=== PATIENT | female | born 1930 | race African-American/Black ===

== ENCOUNTER 2018-07-12 20:34 | Emergency (ER) | payer MEDICARE, MEDICAID ==
[~2018-07-12] VITALS: Ht 167.6 cm; Wt 90.7 kg
[~2018-07-12 20:34] MED LIST: ATORVASTATIN CA10 MG ORAL; COREG3.125 MG ORAL; FUROSEMIDE20 M1 ORAL; SPIRONOLACTONE100 MG ORAL; ZESTORETIC 20/251 EA ORAL
--- NOTE | 2018-07-12 20:40 | NUR ---
ED Nurse Note: Patient BIBA RA 26 from home c/o shortness of breath becoming progressively worse over the past 2 days. Patient SpO2 at 100% on 15lpm via non rebreather. 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 AO4 NAD
--- NOTE | 2018-07-12 20:45 | NUR ---
ED Nurse Note: IV access established. Blood collected; sent down to lab. unable to get enough blood for blood cultures. attempted to get blood x3 with ore charger. called lab to draw.
--- NOTE | 2018-07-12 20:54 | Emergency Room Report ---
History of Present Illness General Chief Complaint: Dyspnea/Respdistress Source: Patient (Heidi Wilson DO) Present Illness HPI Patient presents with reports and complaints of shortness of breath Patient is somewhat of a poor historian Reports that over the past several days has been feeling more short of breath Paramedics were summoned Patient denies any vomiting or diarrhea Denies any recent travel Denies any URI symptoms she feels that laying flat and any minimal exertion is worsening her symptoms Patient reports that she was not given any medication is not taking any at this time (Heidi Wilson DO) Allergies: Coded Allergies: NO KNOWN ALLERGIES (Verified Allergy, Unknown, 07/12/18) Patient History Past Medical History: see triage record Pertinent Family History: none Last Menstrual Period: SAMMIE Now: No Reviewed Nursing Documentation: PMH: Agreed; PSxH: Agreed (Heidi Wilson DO) Nursing Documentation-PMH Past Medical History: No History, Except For Hx Cardiac Problems: Yes - CHF Hx Hypertension: Yes Hx Cancer: No Hx Gastrointestinal Problems: No Hx Neurological Problems: No (Heidi Wilson DO) Review of Systems All Other Systems: negative except mentioned in HPI (Heidi Wlison DO) Physical Exam Vital Signs Date Time Temp Pulse Resp B/P (MAP) Pulse Ox O2 Delivery O2 Flow Rate FiO2 07/12/18 20:32 97.5 112 24 169/103 100 Non-Rebreather 15.0 Sp02 EP Interpretation: reviewed, normal General Appearance: mild distress - Appears mildly short of breath Head: normocephalic, atraumatic Eyes: bilateral eye PERRL ENT: normal pharynx Neck: full range of motion, supple Respiratory: crackles - Bilaterally and mildly tachypneic Cardiovascular #1: regular rate, rhythm Gastrointestinal: non tender, soft, no mass Genitourinary: no CVA tenderness Musculoskeletal: normal inspection Neurologic: alert, responsive, 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 Wilson.See Dr. Wilson's note for full HPI. Patient was noted to have some significant difficulty breathing and congestive heart failure.Laboratory testing was notable for markedly elevated BNP. Patient was given IV Lasix. Patient was discussed with Dr.El Box for transfer to [facility]. Patient will be transferred via ALS ambulance. Patient is currently in stable condition. Labs Test 07/12/18 20:38 07/12/18 20:45 07/12/18 21:50 Arterial Blood pH 7.390 (7.350-7.450) Arterial Blood Partial Pressure CO2 43.1 mmHg (35.0-45.0) Arterial Blood Partial Pressure O2 262.9 mmHg (75.0-100.0) Arterial Blood HCO3 25.5 mmol/L (22.0-26.0) Arterial Blood Oxygen Saturation 99.5 % (95-100) Arterial Blood Base Excess 0.4 (-2-2) Valente Test Positive White Blood Count 4.3 K/UL (4.8-10.8) Red Blood Count 3.11 M/UL (4.20-5.40) Hemoglobin 10.0 G/DL (12.0-16.0) Hematocrit 29.8 % (37.0-47.0) Mean Corpuscular Volume 96 FL (80-99) Mean Corpuscular Hemoglobin 32.2 PG (27.0-31.0) Mean Corpuscular Hemoglobin Concent 33.6 G/DL (32.0-36.0) Red Cell Distribution Width 15.8 % (11.6-14.8) Platelet Count 229 K/UL (150-450) Mean Platelet Volume 6.3 FL (6.5-10.1) Neutrophils (%) (Auto) 54.1 % (45.0-75.0) Lymphocytes (%) (Auto) 28.8 % (20.0-45.0) Monocytes (%) (Auto) 10.6 % (1.0-10.0) Eosinophils (%) (Auto) 3.6 % (0.0-3.0) Basophils (%) (Auto) 2.9 % (0.0-2.0) Prothrombin Time 10.8 SEC (9.30-11.50) Prothromb Time International Ratio 1.0 (0.9-1.1) Activated Partial Thromboplast Time 24 SEC (23-33) Sodium Level 143 MMOL/L (136-145) Potassium Level 4.4 MMOL/L (3.5-5.1) Chloride Level 108 MMOL/L (98-107) Carbon Dioxide Level 29 MMOL/L (21-32) Anion Gap 6 mmol/L (5-15) Blood Urea Nitrogen 15 mg/dL (7-18) Creatinine 1.1 MG/DL (0.55-1.30) Estimat Glomerular Filtration Rate mL/min (>60) Glucose Level 101 MG/DL (74-106) Calcium Level 9.4 MG/DL (8.5-10.1) Total Bilirubin 0.4 MG/DL (0.2-1.0) Aspartate Amino Transf (AST/SGOT) 27 U/L (15-37) Alanine Aminotransferase (ALT/SGPT) 42 U/L (12-78) Alkaline Phosphatase 121 U/L (46-116) Total Creatine Kinase 125 U/L (26-308) Creatine Kinase MB 1.7 NG/ML (0.0-3.6) Creatine Kinase MB Relative Index 1.3 Troponin I 0.034 ng/mL (0.000-0.056) Pro-B-Type Natriuretic Peptide 75364 pg/mL (0-125) Total Protein 7.4 G/DL (6.4-8.2) Albumin 3.1 G/DL (3.4-5.0) Globulin 4.3 g/dL Albumin/Globulin Ratio 0.7 (1.0-2.7) (Demarcus Garcia MD) EKG Diagnostic Results Rate: tachycardiac Rhythm: other ST Segments: other - Left bundle-branch block, nonspecific changes (Heidi Wilson DO) Rhythm Strip Diag. Results EP Interpretation: yes Rate: 77 Rhythm: NSR, no PVC's, no ectopy, other - Prolonged QRS (Heidi Wilson DO) Chest X-Ray Diagnostic Results Chest X-Ray Diagnostic Results : Chest X-Ray Ordered: Yes # of Views/Limited/Complete: 1 View Indication: Shortness of Breath EP Interpretation: Yes Interpretation: no consolidation, no effusion, no pneumothorax, other - Pulmonary congestion Impression: Other - Pulmonary congestion Electronically Signed by: Heidi Wilson DO (Heidi Wilson DO) Last Vital Signs Date Time Temp Pulse Resp B/P (MAP) Pulse Ox O2 Delivery O2 Flow Rate FiO2 07/12/18 20:32 97.5 112 24 169/103 100 Non-Rebreather 15.0 (Heidi Wilson DO) Status: improved (Demarcus Garcia MD) Disposition: XFER T-[facility] Condition: Stable Heidi Wilson DO Jul 12, 2018 20:54 Demarcus Garcia MD Jul 12, 2018 22:21
[2018-07-12 21:32] LABS: BASOPHILS % (AUTO) 2.9 % (0.0-2.0); EOSINOPHILS % (AUTO) 3.6 % (0.0-3.0); HEMATOCRIT 29.8 % (37.0-47.0); LYMPHOCYTES % (AUTO) 28.8 % (20.0-45.0); MEAN CORPUSCULAR VOLUME 96 FL (80-99); MONOCYTES % (AUTO) 10.6 % (1.0-10.0); NEUTROPHILS % (AUTO) 54.1 % (45.0-75.0); PLATELET COUNT 229 K/UL (150-450); RED BLOOD COUNT 3.11 M/UL (4.20-5.40); RED CELL DISTRIBUTION WIDTH 15.8 % (11.6-14.8); WHITE BLOOD COUNT 4.3 K/UL (4.8-10.8)
[2018-07-12 21:44] LABS: ANION GAP 6 mmol/L (5-15); BLOOD UREA NITROGEN 15 mg/dL (7-18); CALCIUM 9.4 MG/DL (8.5-10.1); CARBON DIOXIDE 29 MMOL/L (21-32); CHLORIDE 108 MMOL/L (98-107); CREATININE 1.1 MG/DL (0.55-1.30); POTASSIUM 4.4 MMOL/L (3.5-5.1); SODIUM 143 MMOL/L (136-145)
--- NOTE | 2018-07-12 21:45 | NUR ---
ED Nurse Note: Urine collected; sent down to lab. Called lab to draw blood culture.
[2018-07-12 21:59] LABS: ALANINE AMINOTRANSFERASE 42 U/L (12-78); ALBUMIN 3.1 G/DL (3.4-5.0); ALBUMIN/GLOBULIN RATIO 0.7 (1.0-2.7); ALKALINE PHOSPHATASE 121 U/L (46-116); ASPARTATE AMINO TRANSFERASE 27 U/L (15-37); BILIRUBIN,TOTAL 0.4 MG/DL (0.2-1.0); CKMB 1.7 NG/ML (0.0-3.6); CREATINE KINASE 125 U/L (26-308)
[2018-07-12 22:20] VITALS: BP 147/59
[2018-07-12 22:23] LABS: APPEARANCE,URINE CLEAR; BILIRUBIN, URINE NEGATIVE (NEGATIVE); COLOR,URINE PALE YELLOW; GLUCOSE, URINE (UA) NEGATIVE (NEGATIVE); KETONES,URINE NEGATIVE (NEGATIVE); LEUKOCYTE ESTERASE ,URINE NEGATIVE (NEGATIVE); NITRITE,URINE NEGATIVE (NEGATIVE); PH,URINE 6 (4.5-8.0); PROTEIN,URINE 2+ (NEGATIVE); UROBILINOGEN,URINE NORMAL MG/DL (0.0-1.0)
[2018-07-13 00:30] VITALS: BP 147/59
--- NOTE | 2018-07-13 00:31 | NUR ---
ED Nurse Note: REPORT GIVENT TO BUD AIKEN FROM [facility]. PT TO BE ADMITTED TO 561 UNDER THE CARE OF MD LITZY. REPORT GIVEN TO BUD LOZOYA OF [facility]. PT LEFT WITH AMBULANCE PERSONNEL.
--- NOTE | 2018-07-13 12:09 | Diagnostic Imaging Report ---
Indication: Shortness of breath Technique: XRAY Chest 1v Comparison: 06/20/2013 Findings: Size within the upper limits for normal for AP technique. Mediastinal contours are sharp. There are atherosclerotic vascular calcifications. There is no definite focal airspace consolidation. No pleural effusion or pneumothorax. Mild interstitial fullness is noted. No evidence of alveolar edema. Multiple loop recorder noted. No acute osseous abnormality is appreciated. Impression: Borderline cardiomegaly with slight prominence of the pulmonary vascularity raising question for mild congestive changes/CHF. Correlate clinically. No focal airspace consolidation, pleural effusion or pneumothorax.
--- NOTE | 2018-07-15 13:21 | Cardiology Report ---
APPROVED REPORT EKG Measurement Heart [id number] Sinus tachycardia with premature supraventricular complexes and with occasional premature ventricular complexes Possible Left atrial enlargement Left axis deviation Left bundle branch block Abnormal ECG
== END 2018-07-13 00:30 | disposition short-term general hospital (02) ==
LOC: EDBD 20:34 → EMR 20:45
DX: I50.9 Heart failure, unspecified (principal); I11.0 Hypertensive heart disease with heart failure; I44.7 Left bundle-branch block, unspecified
CPT/HCPCS: 36415; 36600; 71045; 80053; 81003; 82550; 82553; 82803; 83880; 84484; 85025; 85610; 85730; 87040; 93005; 96374; 99284; J1940